=== PATIENT | female | born 1995 | race Caucasian/White ===

== ENCOUNTER → 2024-07-21 09:20 | Outpatient (REF) | payer BC, SELFPAY | LOC: WDC 09:20 | PROVIDERS: ATTENDING PHYSICIAN Advanced Practice Midwife | DX: N63.10 Unspecified lump in the right breast, unspecified quadrant (principal); N63.11 Unspecified lump in the right breast, upper outer quadrant | CPT/HCPCS: 76642 ==

== ENCOUNTER → 2024-08-01 10:18 | Outpatient (REF) | payer BC, SELFPAY | LOC: RCS 10:18 | PROVIDERS: ATTENDING PHYSICIAN Internal Medicine Cardiovascular Disease | DX: Q22.1 Congenital pulmonary valve stenosis (principal); I37.1 Nonrheumatic pulmonary valve insufficiency; I51.7 Cardiomegaly | CPT/HCPCS: 93306 ==

== ENCOUNTER → 2024-10-20 08:30 | Outpatient (REF) | payer BC, SELFPAY | LOC: PAVMRI 08:30 | PROVIDERS: ATTENDING PHYSICIAN Internal Medicine Cardiovascular Disease; FAMILY PHYSICIAN Internal Medicine | DX: I51.7 Cardiomegaly (principal); I37.1 Nonrheumatic pulmonary valve insufficiency; Q22.1 Congenital pulmonary valve stenosis | CPT/HCPCS: 75561; 75565; A9585 ==

== ENCOUNTER → 2024-11-07 10:04 | Outpatient (REF) | payer BC, SELFPAY | LOC: RCS 10:04 | PROVIDERS: ATTENDING PHYSICIAN Internal Medicine Cardiovascular Disease; FAMILY PHYSICIAN Nurse Practitioner Adult Health | DX: I51.7 Cardiomegaly (principal); I37.1 Nonrheumatic pulmonary valve insufficiency; Q22.1 Congenital pulmonary valve stenosis; R00.2 Palpitations | CPT/HCPCS: 93308; 93321; 93325 ==

== ENCOUNTER 2024-11-27 08:23 | Day surgery (SDC) | payer BC, SELFPAY ==
[2024-10-27 11:24] LABS: % Basophils 0.4 % (0-2); % Immature Granulocytes 0.3 % (0-0.5); % Lymphocytes 28.3 % (20.5-51.1); % Monocytes 7.5 % (1.7-9.3); % Neutrophils 44.5 % (42.2-75.2); Absolute Eosinophils 1.4 10^3/uL (0-0.7); Absolute Monocytes 0.5 10^3/uL (0.1-0.6); Absolute Neutrophils 3.2 10^3/uL (1.4-6.5); Hematocrit 46.2 % (37.0-47.0); Hemoglobin 15.6 g/dL (12.0-16.0); Mean Corp Hgb Conc. 33.8 g/dL (33.0-37.0); Mean Corpuscular Hgb 29.1 pg (27.0-31.0); Mean Platelet Volume 10.6 fL (7.4-10.4); Nucleated Red Blood Cells % 0 %; Platelet Count 263 10^3/uL (130-400); Red Blood Cell Count 5.37 10^6/uL (4.20-5.40); Red Cell Dist. Width 12.6 % (11.5-14.5); White Blood Cell Count 7.1 10^3/uL (4.8-10.8)
[2024-10-27 11:32] LABS: HCG, Serum Qualitative Screen Negative
[2024-10-27 14:06] VITALS: BMI 25.1
--- NOTE | 2024-11-24 14:31 | HPS.HSE ---
Family Physician
-
Family Physician: Lias Martell MD
Chief Complaint
-
LEEP
History of Present Illness
Patient is a 29yo who presents for preop for LEEP. She had a Pap that was LSIL, +HPV on 08/27. She had a colposcopy that showed CRISTOBAL 2-3 at 6&9 o'clock with negative ECC. LEEP recommended. She has a history of pulmonary valve stenosis and is
seeing Cardiology this week. She had an echo in July and a cardiac MRI this week. She follows with Dr. Huber at [facility]. She says she will also get an EKG this week.
PMHx: pulmonary valve stenosis
Meds: tirzepatide (stopped taking a couple weeks ago)
Surghx: open heart surgery at 1d old, balloon catheter in pulmonary valve age 4, toe biopsy, C/Sx1
NKDA
Socialhx: occ etoh, denies tobacco or illicit drug use
Famhx: HTN- mom, maternal grandmother and grandfather, paternal grandmother cervical cancer
Gynhx: LMP 2/14, regular monthly periods
OBHx: , SVDx1, C/Sx1
Medical History
Past Medical History
Past Medical History: Reports Other
Additional Past Medical History:
pulmonary valve stenosis
Past Surgical History: Reports
Additional Past Surgical History:
open heart surgery at 3d old, balloon catheter in pulmonary valve age 4, toe biopsy, C/Sx1
Social History
Tobacco: Non-smoker
Alcohol: None
Drug: None
Family History
Family History: Not pertinent
Allergies / Home Medications
Allergies reflects when Allergies were last updated in [facility].
Home Medications with original date entered in [facility]
Allergy/Medication List:
Meds: tirzepatide- stoppped taking
NKDA
Review of Systems
-
A 12 point ROS was completed and negative except as noted: Yes
Physical Exam
Physical Exam
General: Well Developed
HEENT: NormoCephalic
Respiratory: Non Labored Respirations
Cardiac: Regular Rhythm
Skin: Warm
Neuro: Awake, Alert and Oriented
Psych: Calm
Laboratory Results
-
10/27/24 09:38
Impression/Plan
-
IMPRESSION:
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
PLAN:
- Colposcopy with CRISTOBAL 2-3 at 6&9 o'clock. Negative ECC.
- Risks, benefits, and alternatives to LEEP discussed including bleeding, infection, damage to surrounding structures and need for future operations. She was consented for a blood transfusion in case of emergency. Consent was signed
- Pt received Cardiology clearance
[2024-11-27] VITALS (9 sets, daily range): BP systolic 94–125; BP diastolic 60–73; BMI 25.1
[2024-11-27] MEDS: NORMOSOL-R/PLASMALYTE-A 1000 IV (10:05)
--- NOTE | 2024-11-27 13:54 | OR.RPT ---
Operative Report
Operative Report
Date of procedure: 11/27/24
Preop diagnosis: CIN2-3
Postop diagnosis: same
Procedure: LEEP
Surgeon: Deandre
Anesthesia: Dr. Gurrola, general
EBL: 5mL
Finding: normal appearing external genitalia, cervix with decreased uptake of Lugol's at 6 and 12 o'clock, LEEP bed hemostatic at the end of the procedure
Complications: none
Specimen: ectocervix, ectocervix at 9 o'clock
Urine output: 400mL
Indication: Patient is a 29yo who presents for LEEP. She had a Pap on 08/27/24 that was LSIL, +HPV. Colposcopy showed CIN2-3 at 6&9 o'clock with negative ECC. LEEP was recommended. Risks, benefits and alternatives discussed and all questions
answered prior to proceeding. Consents were signed.
Procedure: Patient was taken to the operating room and placed under general anesthesia. She was placed in the dorsal lithotomy position in Gene type stirrups. She was prepped and draped in the normal sterile fashion. The bladder was drained with a
straight catheter yielding 400cc of clear urine. Insulated speculum was inserted into the vagina revealing good visualization of the cervix. 1% lidocaine with epinephrine was injected circumferentially into the cervix. Lugol's solution was applied
to the cervix. Decreased uptake of Lugol's noted at 6 and 12 o'clock. A [id number] loop was introduced into the cervix at the 12 o'clock position and a pass was made to the 6 o'clock position. The biopsy was tagged at 12 o'clock. An additional biopsy
was taken at the 9 o'clock position (sent separately). The specimens were sent to pathology for evaluation. The cervix was cauterized with a ball electrode until good hemostasis was noted. Monsel's solution was applied to the cervix at the endo of
the procedure. The LEEP bed was noted to be hemostatic. All instruments were removed from the vagina. The patient was awakened from anesthesia. The patient tolerated the procedure well. All sponge and instrument counts were correct. She was taken to
PACU in stable condition.
== END 2024-11-27 14:00 | disposition home or self-care (01) ==
LOC: SDS 08:23
PROVIDERS: ATTENDING PHYSICIAN Student in an Organized Health Care Education/Training Program; FAMILY PHYSICIAN Family Medicine; OTHER PHYSICIAN Internal Medicine Cardiovascular Disease
DX: D06.9 Carcinoma in situ of cervix, unspecified (principal)
CPT/HCPCS: 57460; 58110; 88305; 88307; 36415; 84703; 85025; 86850; 86900; 86901